=== PATIENT | female | born 1955 | race Caucasian/White ===

== ENCOUNTER 2021-03-11 15:50 | Inpatient (IN) ==
[2021-03-11] MEDS ORDERED: ZOFRAN INJ 4 MG VIAL IVP ONE (15:59)
[2021-03-11] MEDS ORDERED: MORPHINE SULFATE INJ 4 MG IVP ONE (15:59)
--- NOTE | 2021-03-11 16:00 | ED.ABDFE ---
HPI Time Seen Time Seen by Provider: 03/11/21 15:59 HPI Comment HPI Comment: sent over from PCP- had outpt study showing ruptured appy. Complaint Chief Complaint:: being seen by Dr Acosta in ED Reviewed Nurses Notes Review: Yes PMH PMH Past Medical History: Yes ROS Review of Systems Constitutional: See HPI Eyes: No Symptoms Reported ENTM: No Symptoms Reported Respiratoy: No Symptoms Reported Cardiovascular: No Symptoms Reported Gastrointestinal/Abdominal: See HPI and Abdominal Pain Neurological: No Symptoms Reported Musculoskeletal: No Symptoms Reported Integumentary: No Symptoms Reported Endocrine: No Symptoms Reported PE Vital Signs Vitals: Temperature 98.4 F Pulse Rate 99 Respiratory Rate 17 Blood Pressure 191/85 O2 Sat by Pulse Oximetry 100 General General Appearance: Alert and In Distress Head Head Exam: Normal Inspection Eyes Eye exam: Normal Appearance ENT ENT Exam: Normal Exam Neck Neck Exam: Normal Inspection Respiratory Respiratory Exam: Normal Lung Sounds Bilat Cardiovascular Cardiovascular Exam: Regular Rate and Normal Heart Sounds Abdominal Exam Abdominal Exam: Normal Inspection, Normal Bowel Sounds, Tenderness and Guarding; negative Rebound and Dimnished Bowel Sounds Back Back Exam: Normal Inspection Extremeties Extremities Exam: Normal Inspection and Full ROM Skin Skin Exam: Warm, Dry and Intact ROR Labs Reviewed Laboratory Results Reviewed?: Yes Result Diagrams: 03/11/21 16:17 03/11/21 16:17 Laboratory: WBC 21.4 X10^3/uL (3.6-10.0) H 03/11/21 16:17 RBC 4.06 X10^6/uL (3.5-5.4) 03/11/21 16:17 Hgb 13.1 g/dL (12.0-16.0) 03/11/21 16:17 Hct 38.7 % (36.0-47.0) 03/11/21 16:17 MCV 95.3 fL (80.0-100.0) 03/11/21 16:17 MCH 32.2 pg (27.0-34.0) 03/11/21 16:17 MCHC 33.8 g/dL (33.0-35.0) 03/11/21 16:17 RDW 13.4 % (11.6-16.5) 03/11/21 16:17 Plt Count 227 X10^3/uL (150.0-450.0) 03/11/21 16:17 MPV 10.7 fL (7.4-11.0) 03/11/21 16:17 Neut % (Auto) 84.2 % (42.0-75.0) H 03/11/21 16:17 Lymph % (Auto) 7.5 % (21.0-51.0) L 03/11/21 16:17 [place] % (Auto) 8.0 % (0.0-13.0) 03/11/21 16:17 Eos % (Auto) 0.1 % (0.9-2.9) L 03/11/21 16:17 Baso % (Auto) 0.2 % (0.2-1.0) 03/11/21 16:17 Neut # (Auto) 18.0 x10^3/uL (2.2-4.8) H 03/11/21 16:17 Lymph # (Auto) 1.6 X10^3/uL (1.3-2.9) 03/11/21 16:17 [place] # (Auto) 1.7 x10^3/uL (0.3-0.8) H 03/11/21 16:17 Eos # (Auto) 0.0 x10^3/uL (0.0-0.2) 03/11/21 16:17 Baso # (Auto) 0.1 X10^3/uL (0.0-0.1) 03/11/21 16:17 Absolute Nucleated RBC 0.0 /100WBC 03/11/21 16:17 Sodium 132 mmol/L (136-145) L 03/11/21 16:17 Corrected Sodium TNP 03/11/21 16:17 Potassium 3.7 mmol/L (3.5-5.1) 03/11/21 16:17 Chloride 96 mmol/L (98-107) L 03/11/21 16:17 Carbon Dioxide 26.8 mmol/L (21-32) 03/11/21 16:17 BUN 11 mg/dL (7-18) 03/11/21 16:17 Creatinine 0.69 mg/dL (0.55-1.02) 03/11/21 16:17 Est GFR (MDRD) Af Amer > 60 (>60) 03/11/21 16:17 Est GFR (MDRD) Non-Af > 60 (>60) 03/11/21 16:17 Glucose 103 mg/dL (65-99) H 03/11/21 16:17 Calcium 9.0 mg/dL (8.5-10.1) 03/11/21 16:17 Corrected Calcium 9.7 mg/dL (8.5-10.1) 03/11/21 16:17 Total Bilirubin 0.60 mg/dL (0.2-1.0) 03/11/21 16:17 AST 12 Units/L (15-37) L 03/11/21 16:17 ALT 19 Units/L (12-78) 03/11/21 16:17 Alkaline Phosphatase 85 Units/L (46-116) 03/11/21 16:17 Total Protein 7.8 g/dL (6.4-8.2) 03/11/21 16:17 Albumin 3.1 g/dL (3.4-5.0) L 03/11/21 16:17 Globulin 4.7 g/dL (2.5-4.5) H 03/11/21 16:17 Albumin/Globulin Ratio 0.7 Ratio (1.1-2.1) L 03/11/21 16:17 Amylase 25 Units/L (25-115) 03/11/21 16:17 Lipase 74 Units/L (73-393) 03/11/21 16:17 Specimen Type Clean catch urine 03/11/21 16:26 Urine Color Yellow (YELLOW) 03/11/21 16:26 Urine Appearance Hazy (CLEAR) 03/11/21 16:26 Urine pH 5.0 (5.0 - 8.0) 03/11/21 16:26 Ur Specific [place] 1.005 (1.000-1.030) 03/11/21 16:26 Urine Protein 2+ (NEGATIVE) 03/11/21 16:26 Urine Glucose (UA) Negative (NEGATIVE) 03/11/21 16: Urine Ketones 3+ (NEGATIVE) 03/11/21 16:26 Urine Occult Blood 3+ (NEGATIVE) 03/11/21 16:26 Urine Nitrite Negative (NEGATIVE) 03/11/21 16:26 Urine Bilirubin Negative (NEGATIVE) 03/11/21 16:26 Urine Urobilinogen Normal (NORMAL) 03/11/21 16:26 Ur Leukocyte Esterase 1+ (NEGATIVE) 03/11/21 16:26 Urine RBC 3-5 /HPF (0-3) A 03/11/21 16:26 Urine WBC 0-2 /HPF (0-5) 03/11/21 16:26 Ur Squamous Epith Cells Negative /HPF (NEGATIVE) 03/11/21 16:26 Urine Bacteria Negative /HPF (NEGATIVE) 03/11/21 16:26 Urine Mucus Few /HPF (NEGATIVE) 03/11/21 16:26 Ur Culture Indicated? No/not indicated 03/11/21 16:26 Opioid Opioid Risk Tool Total: 0 Total Score Risk Category: Low Risk Copyright: Ramesh PEARCE predicting aberrant behaviors Diagnosis Discharge Problem: Appendicitis Instructions Instructions: Laparoscopic Appendectomy, Adult, Care After, [id number]
[2021-03-11 16:12] VITALS: BMI 28.5
[2021-03-11] MEDS ORDERED: MORPHINE SULFATE INJ 4 MG ONE (16:15)
[2021-03-11] MEDS ORDERED: ZOFRAN INJ 4 MG VIAL ONE ×2 (16:16→17:24)
[2021-03-11] MEDS ORDERED: FLAGYL IV PREMIX 500 MG BAG 500 MG/100 ML BAG IV ONE (16:17)
[2021-03-11] MEDS ORDERED: NS 1000 ML 1,000 ML ONE (16:22)
[2021-03-11] MEDS ORDERED: ZOSYN VIAL 3.375 GRAMS IV ONE (16:22)
[2021-03-11] MEDS ORDERED: NS 100 ML IV + SPIKE MINIBAG* 100 ML IV ONE (16:22)
[2021-03-11 16:36] LABS: BILIRUBIN,URINE NEGATIVE (NEGATIVE); BLOOD/HEMOGLOBIN,URINE 3+ (NEGATIVE); GLUCOSE, URINE NEGATIVE (NEGATIVE); KETONES,URINE 3+ (NEGATIVE); LEUKOCYTE ESTERASE ,URINE 1+ (NEGATIVE); NITRITES,URINE NEGATIVE (NEGATIVE); PROTEIN,URINE 2+ (NEGATIVE); UROBILINOGEN,URINE NORMAL (NORMAL)
[2021-03-11] MEDS: ZOSYN VIAL 3.375 GRAMS 3.375 G in NS 100 ML IV + SPIKE MINIBAG* 100 ML IV SCH ×2 (16:36→21:26)
[2021-03-11 16:38] LABS: APPEARANCE,URINE HAZY (CLEAR); COLOR,URINE YELLOW (YELLOW)
[2021-03-11 16:41] LABS: BASOPHILS # (AUTO) 0.1 X10^3/uL (0.0-0.1); BASOPHILS % (AUTO) 0.2 % (0.2-1.0); EOSINOPHILS % (AUTO) 0.1 % (0.9-2.9); HEMATOCRIT 38.7 % (36.0-47.0); HEMOGLOBIN 13.1 g/dL (12.0-16.0); LYMPHOCYTES # (AUTO) 1.6 X10^3/uL (1.3-2.9); LYMPHOCYTES % (AUTO) 7.5 % (21.0-51.0); MEAN CORPUSCULAR HEMOGLOBIN 32.2 pg (27.0-34.0); MEAN CORPUSCULAR HGB CONC 33.8 g/dL (33.0-35.0); MEAN CORPUSCULAR VOLUME 95.3 fL (80.0-100.0); MEAN PLATELET VOLUME 10.7 fL (7.4-11.0); MONOCYTES # (AUTO) 1.7 x10^3/uL (0.3-0.8); NEUTROPHILS % (AUTO) 84.2 % (42.0-75.0); PLATELET COUNT 227 X10^3/uL (150.0-450.0); RED BLOOD COUNT 4.06 X10^6/uL (3.5-5.4); RED CELL DISTRIBUTION WIDTH 13.4 % (11.6-16.5); WHITE BLOOD COUNT 21.4 X10^3/uL (3.6-10.0)
[2021-03-11 16:42] LABS: ALANINE AMINOTRANSFERASE 19 Units/L (12-78); ALBUMIN 3.1 g/dL (3.4-5.0); ALKALINE PHOSPHATASE 85 Units/L (46-116); AMYLASE 25 Units/L (25-115); ASPARTATE AMINO TRANSFERASE 12 Units/L (15-37); BLOOD UREA NITROGEN 11 mg/dL (7-18); CARBON DIOXIDE 26.8 mmol/L (21-32); CHLORIDE 96 mmol/L (98-107); COR CA(FOR HYPOALB) 9.7 mg/dL (8.5-10.1); CREATININE 0.69 mg/dL (0.55-1.02); LIPASE 74 Units/L (73-393); SODIUM 132 mmol/L (136-145); TOTAL PROTEIN 7.8 g/dL (6.4-8.2); eGFR NON BLACK RACES > 60 (>60)
[2021-03-11 16:43] LABS: BACTERIA,URINE NEGATIVE /HPF (NEGATIVE); MUCUS,URINE FEW /HPF (NEGATIVE); SQUAMOUS EPITHELIAL CELL,UR NEGATIVE /HPF (NEGATIVE)
--- NOTE | 2021-03-11 16:44 | RAD ---
HISTORYPRE-OP RUTURES APPENDIX NOTEDSTUDYCHEST, 1 VIEWCOMPARISONNoneFINDINGSThe trachea is midline. The cardiac silhouette is unremarkable . The lungs are clear without focal infiltrate or effusion. The bony thorax is unremarkable.IMPRESSIONNo acute cardiopulmonary disease.Electronically signed by: RASHAD STONE (Mar 11, 2021 16:42:12)
[2021-03-11 16:53] LABS: ANISOCYTOSIS SLIGHT; BAND NEUTROPHILS % 2 % (0-10); PLATELET MORPHOLOGY COMMENT NORMAL (NORMAL); TOXIC GRANULATION 1+
[2021-03-11] MEDS ORDERED: NS 1000 ML 1,000 ML IV SCH (17:00)
[2021-03-11] MEDS ORDERED: DECADRON INJ ONE (17:07)
[2021-03-11] MEDS ORDERED: FENTANYL INJ 100 mcg ONE (17:08)
[2021-03-11] MEDS ORDERED: DILAUDID INJ ONE (17:08)
[2021-03-11] MEDS ORDERED: BRIDION ONE (17:08)
[2021-03-11] MEDS ORDERED: PEPCID 20 MG IV PREMIX* 20 MG/50 ML BAG IV ONE (17:09)
[2021-03-11] MEDS ORDERED: ZEMURON 50 MG VIAL ONE ×2 (17:09→17:24)
[2021-03-11] MEDS ORDERED: OFIRMEV IV 1000 MG VIAL 1,000 MG/100 ML VIAL IV ONE (17:09)
[2021-03-11] MEDS ORDERED: VERSED ONE (17:24)
[2021-03-11] MEDS ORDERED: TORADOL 30 MG VIAL ONE (17:24)
[2021-03-11] MEDS ORDERED: NEO-SYNEPHRINE INJ ONE (17:24)
[2021-03-11] MEDS ORDERED: DIPRIVAN VIAL ONE (17:24)
[2021-03-11] MEDS ORDERED: XYLOCAINE 2 % (PLAIN) ONE (17:24)
[2021-03-11] MEDS ORDERED: REGLAN INJ 10 MG VIAL ONE (17:24)
[2021-03-11] MEDS ORDERED: ULTANE GAS IN ONE (17:24)
[2021-03-11] MEDS ORDERED: ROBINUL ONE (17:24)
[2021-03-11] MEDS ORDERED: KETALAR ONE (17:24)
[2021-03-11] MEDS ORDERED: DILAUDID INJ IVP PRN ×2 (18:32→19:06)
[2021-03-11] MEDS ORDERED: ZOFRAN INJ 4 MG VIAL IVP PRN ×2 (18:32→19:06)
[2021-03-11] MEDS ORDERED: BACTROBAN TOPICAL OINT ONE (18:33)
[2021-03-11] MEDS: FLAGYL IV PREMIX 500 MG BAG 500 MG/100 ML BAG IV SCH (19:00)
[2021-03-11] MEDS ORDERED: BENADRYL INJ 50 MG VIAL IVP PRN (19:06)
[2021-03-11] MEDS ORDERED: PHENERGAN INJ 25 MG IM PRN (19:06)
[2021-03-11] MEDS ORDERED: REGLAN INJ 10 MG VIAL IVP PRN (19:06)
[2021-03-11] MEDS: D5 1/2 NS 1000 ML 1,000 ML IV SCH (20:26)
[2021-03-12] MEDS: FLAGYL IV PREMIX 500 MG BAG 500 MG/100 ML BAG IV SCH ×4 (03:15→20:26)
[2021-03-12] MEDS: D5 1/2 NS 1000 ML 1,000 ML IV SCH ×3 (04:46→20:36)
[2021-03-12] MEDS: ZOSYN VIAL 3.375 GRAMS 3.375 G in NS 100 ML IV + SPIKE MINIBAG* 100 ML IV SCH ×3 (05:31→21:19)
--- NOTE | 2021-03-12 08:49 | DR.H&P ---
H&P - History & Physical for Day of: H&P Date: 03/11/21 - Chief Complaint Chief Complaint: ABDOMINAL PAIN, RUPTURED APPENDIX - History of Present Illness History of Present Illness: IS A 65 YEAR OLD PATIENT OF OURS WHO PRESENTED TO THE ER WITH COMPLAINTS OF MODERATE RIGHT LOWER QUADRANT ABDOMINAL PAIN. SHE WAS SEEN IN THE OFFICE EARLIER IN THE DAY. WE ORDERED A STAT ABDOMEN/PELVIS CT WITH CONTRAST WHICH REVEALED: Findings are consistent with acute perforated appendicitis with the appendix not fully delineated. There is a small fluid collection adjacent to the appendix as well as inflammation/phlegmon that may represent an infected fluid collection, however, no well-formed abscess currently identified. HER PMH INCLUDES: HTN, ANEMIA, , AND TUBAL LIGATION. ON ARRIVAL TO THE ER, SHE DESCRIBED PAIN SHARP, INTERMITTENT, AND WAS RATED A 8/10. REBOUND TENDERNESS WAS NOTED ON EXAM. SHE ADMITTED TO NAUSEA WITH OCCASIONAL VOMITING, BUT DENIED FEVER. HER VITALS ON ARRIVAL WERE 98.4-99-20-100%-191/85. LABS WERE OBTAINED. ABNORMAL LAB VALUES INCLUDE THE FOLLOWING: WBC 21.4, SODIUM 132, CHLORIDE 96, GLUCOSE 103, AST 12, ALBUMIN 3.1, GLOBULIN 4.7. A URINALYSIS WAS OBTAINED AND REVEALED: WBC 0-2, RBC 3-5, BACTERIA NEGATIVE, LEUKOCYTES 1+, OCCULT BLOOD 3+, KETONES 3+, PROTEIN 2+. COVID-19 NEGATIVE. A CHEST XRAY WAS OBTAINED AND REVEALED: NO ACUTE CARDIOPULMONARY DISEASE. EKG REVEALED: SINUS RHYTHM WITH HR 85. WAS CONSULTED. HE PLANNED TO TAKE PATIENT TO THE OR FOR DIAGNOSTIC LAPAROSCOPY, POSSIBLE OPE APPENDECTOMY. WE ARE IN AGREEMENT WITH PLANS. PATIENT IS MEDICALLY STABLE AND CLEAR FOR SURGERY. SHE WAS STARTED ON D51/2NS AT 125 ML/HR, DILUADID 1MG IV Q4H PRN PAIN, FLAGYL 500MG IV Q8H, ZOSYN 3.375G IV TID, ZOFRAN 4MG IV Q8H PRN, PROTONIX 40MG IV DAILY. OTHERWISE, WE WILL CONTINUE TO MONITOR PATIENT AFTER SURGERY AND MAKE CHANGES APPROPRIATE. TIME SPENT ON CLINICAL ASSESSMENT, REVIEWING LABS AND IMAGING, DECISION MAKING, AND DOCUMENTATION GREATER THAN 75 MINUTES. - Past Medical History Past Medical History: Anemia, Hypertension - Past Surgical History Surgical History: Additional Surgical History: TUBAL - Family History Family Medical History: Heart Failure, Hypertension - Social History Does patient currently use any type of tobacco product: Yes Have you used tobacco products in the last 12 months: Yes Type of Tobacco Use: Cigarettes Does any household member use tobacco: No Alcohol Use: None Drug Use: None - Medications Home Medications: No Known Drug Allergies Allergy (Verified 03/11/21 16:23) CONTINUE taking the following medications cetirizine [Zyrtec] 10 mg PO ONCE PRN 03/11/21 [History] nifedipine 30 mg PO DAILY 03/11/21 [History] - Review of Systems Constitutional: Weakness Eyes: No Symptoms Reported ENT: No Symptoms Reported Respiratory: No Symptoms Reported Cardiovascular: No Symptoms Reported Gastrointestinal: See HPI, Nausea, Vomiting, Abdominal Pain. denies: Diarrhea Genitourinary: No Symptoms Reported Musculoskeletal: No Symptoms Reported Skin: No Symptoms Reported Neurological: Weakness - Physical Exam Vital Signs: Temperature 97.8 F Pulse Rate [Left Brachial] 57 Pulse Rate 90 Respiratory Rate 26 Blood Pressure [Left Arm] 162/67 Blood Pressure 144/61 O2 Sat by Pulse Oximetry 95 Oriented: Normal Eyes: Normal Ear: Normal Nose: Normal Throat: Normal Respiratory: Diminished Throughout Cardiovascular: Normal : Normal Auscultation: Bowel Sounds: Normal Palpation: Normal Tenderness: RLQ, Moderate, Rebound. negative: Guarding, Rigidity Skin: Normal Musculoskeletal: Normal Psychiatric: Normal Mood Description: Calm Affect: Normal Speech Pattern: Clear - Assessment/Plan (1) Appendicitis Qualifiers: Appendicitis type: acute appendicitis Acute appendicitis type: with localized peritonitis Appendicitis gangrene presence: unspecified whether gangrene present Appendicitis perforation presence: with perforation Status: Acute Plan: ADMIT, SURGICAL CONSULT, D51/2NS AT 125 ML/HR, DILUADID 1MG IV Q4H PRN PAIN, FLAGYL 500MG IV Q8H, ZOSYN 3.375G IV TID, ZOFRAN 4MG IV Q8H PRN, PROTONIX 40MG IV DAILY. - Allergies Allergies/Adverse Reactions: Allergies Allergy/AdvReac Type Severity Reaction Status Date / Time No Known Drug Allergies Allergy Verified 03/11/21 16:23
[2021-03-12 09:02] LABS: BASOPHILS % (AUTO) 0 % (0.2-1.0); HEMOGLOBIN 11.8 g/dL (12.0-16.0); LYMPHOCYTES # (AUTO) 0.6 X10^3/uL (1.3-2.9); LYMPHOCYTES % (AUTO) 3.2 % (21.0-51.0); MEAN CORPUSCULAR HEMOGLOBIN 32.1 pg (27.0-34.0); MEAN CORPUSCULAR HGB CONC 33.8 g/dL (33.0-35.0); MEAN CORPUSCULAR VOLUME 94.8 fL (80.0-100.0); MEAN PLATELET VOLUME 10.7 fL (7.4-11.0); MONOCYTES # (AUTO) 0.8 x10^3/uL (0.3-0.8); MONOCYTES % (AUTO) 4.6 % (0.0-13.0); NEUTROPHILS # (AUTO) 16.9 x10^3/uL (2.2-4.8); NEUTROPHILS % (AUTO) 92.2 % (42.0-75.0); PLATELET COUNT 217 X10^3/uL (150.0-450.0); RED BLOOD COUNT 3.69 X10^6/uL (3.5-5.4); WHITE BLOOD COUNT 18.4 X10^3/uL (3.6-10.0)
[2021-03-12] MEDS: PROTONIX INJ 40 MG VIAL IVP SCH (09:12)
[2021-03-12] MEDS: LOVENOX INJ 40 MG SYR SC SCH (09:12)
[2021-03-12 09:19] LABS: BAND NEUTROPHILS % 7 % (0-10)
[2021-03-12 09:20] LABS: ALANINE AMINOTRANSFERASE 17 Units/L (12-78); ALBUMIN 2.5 g/dL (3.4-5.0); ALKALINE PHOSPHATASE 75 Units/L (46-116); ASPARTATE AMINO TRANSFERASE 11 Units/L (15-37); BLOOD UREA NITROGEN 7 mg/dL (7-18); CALCIUM 8.5 mg/dL (8.5-10.1); CARBON DIOXIDE 26.5 mmol/L (21-32); COR CA(FOR HYPOALB) 9.7 mg/dL (8.5-10.1); CREATININE 0.53 mg/dL (0.55-1.02); PLATELET MORPHOLOGY COMMENT NORMAL (NORMAL); TOTAL PROTEIN 6.6 g/dL (6.4-8.2); eGFR NON BLACK RACES > 60 (>60)
--- NOTE | 2021-03-12 09:41 | DR.PROGNOT ---
Hospital Progress Notes - Progress Note for Day of: Progress Note Date: 03/12/21 - Chief Complaint Chief Complaint: feeling better today ,less pain . s/p lap appendectomy for ruptured appendicitis with abscess RLQ . to d/c catheter and ambulate . - Past Medical Family Social History Past Med/Fam/Surg Hx: No changes since H&P Allergies: Allergies No Known Drug Allergies Allergy (Verified 03/11/21 16:23) - Review Of Systems ROS: No change since H&P - Vital Signs Vital Signs: Temperature 97.8 F Pulse Rate [Left Brachial] 57 Pulse Rate 90 Respiratory Rate 26 Blood Pressure [Left Arm] 162/67 Blood Pressure 144/61 O2 Sat by Pulse Oximetry 95 - Physical Exam Oriented: Normal Eyes: Normal Ear: Normal Nose: Normal Throat: Normal Cardiovascular: Normal : Normal GI:Auscultation: Normal GI:Palpation: Normal GI: Tenderness: Diffuse (soft, flat abdomen with moderate diffuse tenderness .. BS+). negative: Guarding, Rigidity Skin: Normal Musculoskeletal: Normal Psychiatric: Normal Mood Description: Calm Affect: Normal Speech Pattern: Clear - Laboratory and Diagnostics Result Diagrams: 03/12/21 08:33 03/11/21 16:17 Labs: Laboratory WBC 18.4 X10^3/uL (3.6-10.0) H 03/12/21 08:33 RBC 3.69 X10^6/uL (3.5-5.4) 03/12/21 08:33 Hgb 11.8 g/dL (12.0-16.0) L 03/12/21 08:33 Hct 35.0 % (36.0-47.0) L 03/12/21 08:33 MCV 94.8 fL (80.0-100.0) 03/12/21 08:33 MCH 32.1 pg (27.0-34.0) 03/12/21 08:33 MCHC 33.8 g/dL (33.0-35.0) 03/12/21 08:33 RDW 13.0 % (11.6-16.5) 03/12/21 08:33 Plt Count 217 X10^3/uL (150.0-450.0) 03/12/21 08:33 Plt Count Comment Adequate (ADEQUATE) 03/12/21 08:33 MPV 10.7 fL (7.4-11.0) 03/12/21 08:33 Neut % (Auto) 92.2 % (42.0-75.0) H 03/12/21 08:33 Lymph % (Auto) 3.2 % (21.0-51.0) L 03/12/21 08:33 [place] % (Auto) 4.6 % (0.0-13.0) 03/12/21 08:33 Eos % (Auto) 0.0 % (0.9-2.9) L 03/12/21 08:33 Baso % (Auto) 0 % (0.2-1.0) L 03/12/21 08:33 Neut # (Auto) 16.9 x10^3/uL (2.2-4.8) H 03/12/21 08:33 Lymph # (Auto) 0.6 X10^3/uL (1.3-2.9) L 03/12/21 08:33 [place] # (Auto) 0.8 x10^3/uL (0.3-0.8) 03/12/21 08:33 Eos # (Auto) 0.0 x10^3/uL (0.0-0.2) 03/12/21 08:33 Baso # (Auto) 0.0 X10^3/uL (0.0-0.1) 03/12/21 08:33 Absolute Nucleated RBC 0.0 /100WBC 03/12/21 08:33 Total Counted 100 03/12/21 08:33 Neutrophils % (Manual) 87 % (39-76) H 03/12/21 08:33 Band Neutrophils % 7 % (0-10) 03/12/21 08:33 Lymphocytes % (Manual) 3 % (13-43) L 03/12/21 08:33 Monocytes % (Manual) 3 % (4-9) L 03/12/21 08:33 Toxic Granulation 1+ A 03/11/21 16:17 Plt Morphology Comment Normal (NORMAL) 03/12/21 08:33 RBC Morphology Normal (NORMAL) 03/12/21 08:33 Anisocytosis Slight A 03/11/21 16:17 Sodium 132 mmol/L (136-145) L 03/11/21 16:17 Corrected Sodium TNP 03/11/21 16:17 Potassium 3.7 mmol/L (3.5-5.1) 03/11/21 16:17 Chloride 96 mmol/L (98-107) L 03/11/21 16:17 Carbon Dioxide 26.8 mmol/L (21-32) 03/11/21 16:17 BUN 11 mg/dL (7-18) 03/11/21 16:17 Creatinine 0.69 mg/dL (0.55-1.02) 03/11/21 16:17 Est GFR (MDRD) Af Amer > 60 (>60) 03/11/21 16:17 Est GFR (MDRD) Non-Af > 60 (>60) 03/11/21 16:17 Glucose 103 mg/dL (65-99) H 03/11/21 16:17 Calcium 9.0 mg/dL (8.5-10.1) 03/11/21 16:17 Corrected Calcium 9.7 mg/dL (8.5-10.1) 03/11/21 16:17 Total Bilirubin 0.60 mg/dL (0.2-1.0) 03/11/21 16:17 AST 12 Units/L (15-37) L 03/11/21 16:17 ALT 19 Units/L (12-78) 03/11/21 16:17 Alkaline Phosphatase 85 Units/L (46-116) 03/11/21 16:17 Total Protein 7.8 g/dL (6.4-8.2) 03/11/21 16:17 Albumin 3.1 g/dL (3.4-5.0) L 03/11/21 16:17 Globulin 4.7 g/dL (2.5-4.5) H 03/11/21 16:17 Albumin/Globulin Ratio 0.7 Ratio (1.1-2.1) L 03/11/21 16:17 Amylase 25 Units/L (25-115) 03/11/21 16:17 Lipase 74 Units/L (73-393) 03/11/21 16:17 Specimen Type Clean catch urine 03/11/21 16:26 Urine Color Yellow (YELLOW) 03/11/21 16:26 Urine Appearance Hazy (CLEAR) 03/11/21 16:26 Urine pH 5.0 (5.0 - 8.0) 03/11/21 16:26 Ur Specific [place] 1.005 (1.000-1.030) 03/11/21 16:26 Urine Protein 2+ (NEGATIVE) 03/11/21 16:26 Urine Glucose (UA) Negative (NEGATIVE) 03/11/21 16:26 Urine Ketones 3+ (NEGATIVE) 03/11/21 16:26 Urine Occult Blood 3+ (NEGATIVE) 03/11/21 16:26 Urine Nitrite Negative (NEGATIVE) 03/11/21 16:26 Urine Bilirubin Negative (NEGATIVE) 03/11/21 16:26 Urine Urobilinogen Normal (NORMAL) 03/11/21 16:26 Ur Leukocyte Esterase 1+ (NEGATIVE) 03/11/21 16: Urine RBC 3-5 /HPF (0-3) A 03/11/21 16:26 Urine WBC 0-2 /HPF (0-5) 03/11/21 16:26 Ur Squamous Epith Cells Negative /HPF (NEGATIVE) 03/11/21 16:26 Urine Bacteria Negative /HPF (NEGATIVE) 03/11/21 16:26 Urine Mucus Few /HPF (NEGATIVE) 03/11/21 16:26 Ur Culture Indicated? No/not indicated 03/11/21 16:26 SARS CoV-2 RNA Rapid DONITA Negative (NEGATIVE) 03/11/21 16:22 Tissue Pathology To follow 03/11/21 18:20 - Assessment and Plan 1: ruptured appendicitis with abscess formation and localized peritonitis . s/p ramesh appendectomy .. same IV ATB .DVT prophylaxis. OOB . on full liquid . - Problem Patient Problems: Patient Problems Appendicitis (Acute) K37
[2021-03-12 09:44] LABS: CHLORIDE 102 mmol/L (98-107); COR NA(FOR HYPERGLY) 137 mmol/L (136-145); SODIUM 136 mmol/L (136-145)
--- NOTE | 2021-03-12 12:09 | PCM.PROG ---
Progress Note - Progress Note for Day of Date of Exam: 03/12/21 - Subjective Subjective: IS DAY 1 STATUS POST DIAGNOSTIC LAPAROSCOPY, APPENDECTOMY, AND DRAINAGE OF RIGHT LOWER QUADRANT. THERE WAS ABSCESS FORMATION AND LOCALIZED PERITONITIS. A ABBY-SOLORZANO DRAIN WAS LEFT IN PLACE. TODAY, SHE IS ALERT AND ORIENTED, LYING IN BED ON MORNING ROUNDS. SHE REPORTS FEELING B CHERI TODAY AND IS HAVING LESS PAIN. ON EXAMINATION, HEART IS REGULAR IN RATE AND RHYTHM. BILATERAL LUNGS ARE NOTED WITH DIMINISHED LUNG SOUNDS THROUGHOUT. ABDOMEN IS ROUND, SOFT, AND NOTED WITH MODERATE DIFFUSE TENDERNESS. THERE ARE MULTIPLE SURGICAL DRESSINGS NOTED WELL A LORNA DRAIN TO THE RLQ. BOWEL SOUNDS NOTED IN ALL QUADRANTS. ANDERSON CATHETER IS NOTED TO BEDSIDE DRAINAGE. HER VITALS THIS MORNING ARE: 97.8-57-26-95%-162/67. LABS WERE OBTAINED. ABNORMAL LAB VALUES INCLUDE THE FOLLOWING: WBC 18.4, HGB 11.8, HCT 35.0, CREATININE 0.53, GLUCOSE 139, AST 11, ALBUMIN 2.5. SHE IS CURRENTLY RECEIVING D51/2NS AT 125 ML/HR, DILUADID 1MG IV Q4H PRN PAIN, FLAGYL 500MG IV Q8H, ZOSYN 3.375G IV TID, ZOFRAN 4MG IV Q8H PRN, PROTONIX 40MG IV DAILY. WE WILL CONTINUE WITH CURRENT PLAN OF CARE TODAY. WILL CONTINUE TO FOLLOW HER. HE IS ADVANCING HER TO A FULL LIQUID DIET TODAY AND PLANS TO REMOVE THE ANDERSON CATHETER. WE ARE IN AGREEMENT WITH PLANS. OTHERWISE, WE PLAN TO FOLLOW UP WITH AM LABS AND CONTINUE TO MONITOR. TIME SPENT ON CLINICAL ASSESSMENT, REVIEWING LABS AND IMAGING, DECISION MAKING, AND DOCUMENTATION GREATER THAN 45 MINUTES. - Past Medical Family Social History Past Med/Fam/Surg Hx: No changes since H&P Allergies: Allergies No Known Drug Allergies Allergy (Verified 03/11/21 16:23) - Review of Systems ROS: No change since H&P - Vital Signs and I&O's Vital Signs: Temperature 97.7 F Pulse Rate [Left Brachial] 74 Pulse Rate 90 Respiratory Rate 28 Blood Pressure [Left Arm] 129/62 Blood Pressure 144/61 O2 Sat by Pulse Oximetry 95 Intake and Output: Intake & Output 03/10/21 03/11/21 03/12/21 03/13/21 11:59 11:59 11:59 11:59 Intake Total 1021 / 1021 Output Total 1560 / 1560 Balance -539 / -539 - Physical Exam Oriented: Normal Eyes: Normal Ear: Normal Nose: Normal Throat: Normal Respiratory: Generalized, Diminished Cardiovascular: Normal : Normal Auscultation: Bowel Sounds: Normal Palpation: Normal Tenderness: Diffuse (soft, flat abdomen with moderate diffuse tenderness .. BS+). negative: Guarding, Rigidity Skin: Normal Musculoskeletal: Normal Psychiatric: Normal Mood Description: Calm Affect: Normal Speech Pattern: Clear - Laboratory and Diagnostics Result Diagrams: 03/12/21 08:33 03/12/21 08:33 Labs: Laboratory WBC 18.4 X10^3/uL (3.6-10.0) H 03/12/21 08:33 RBC 3.69 X10^6/uL (3.5-5.4) 03/12/21 08:33 Hgb 11.8 g/dL (12.0-16.0) L 03/12/21 08:33 Hct 35.0 % (36.0-47.0) L 03/12/21 08:33 MCV 94.8 fL (80.0-100.0) 03/12/21 08:33 MCH 32.1 pg (27.0-34.0) 03/12/21 08:33 MCHC 33.8 g/dL (33.0-35.0) 03/12/21 08:33 RDW 13.0 % (11.6-16.5) 03/12/21 08:33 Plt Count 217 X10^3/uL (150.0-450.0) 03/12/21 08:33 Plt Count Comment Adequate (ADEQUATE) 03/12/21 08:33 MPV 10.7 fL (7.4-11.0) 03/12/21 08:33 Neut % (Auto) 92.2 % (42.0-75.0) H 03/12/21 08:33 Lymph % (Auto) 3.2 % (21.0-51.0) L 03/12/21 08:33 [place] % (Auto) 4.6 % (0.0-13.0) 03/12/21 08:33 Eos % (Auto) 0.0 % (0.9-2.9) L 03/12/21 08:33 Baso % (Auto) 0 % (0.2-1.0) L 03/12/21 08:33 Neut # (Auto) 16.9 x10^3/uL (2.2-4.8) H 03/12/21 08:33 Lymph # (Auto) 0.6 X10^3/uL (1.3-2.9) L 03/12/21 08:33 [place] # (Auto) 0.8 x10^3/uL (0.3-0.8) 03/12/21 08:33 Eos # (Auto) 0.0 x10^3/uL (0.0-0.2) 03/12/21 08:33 Baso # (Auto) 0.0 X10^3/uL (0.0-0.1) 03/12/21 08:33 Absolute Nucleated RBC 0.0 /100WBC 03/12/21 08:33 Total Counted 100 03/12/21 08:33 Neutrophils % (Manual) 87 % (39-76) H 03/12/21 08:33 Band Neutrophils % 7 % (0-10) 03/12/21 08:33 Lymphocytes % (Manual) 3 % (13-43) L 03/12/21 08:33 Monocytes % (Manual) 3 % (4-9) L 03/12/21 08:33 Toxic Granulation 1+ A 03/11/21 16:17 Plt Morphology Comment Normal (NORMAL) 03/12/21 08:33 RBC Morphology Normal (NORMAL) 03/12/21 08:33 Anisocytosis Slight A 03/11/21 16:17 Sodium 136 mmol/L (136-145) 03/12/21 08:33 Corrected Sodium 137 mmol/L (136-145) 03/12/21 08:33 Potassium 3.7 mmol/L (3.5-5.1) 03/12/21 08:33 Chloride 102 mmol/L (98-107) 03/12/21 08:33 Carbon Dioxide 26.5 mmol/L (21-32) 03/12/21 08:33 BUN 7 mg/dL (7-18) 03/12/21 08:33 Creatinine 0.53 mg/dL (0.55-1.02) L 03/12/21 08:33 Est GFR (MDRD) Af Amer > 60 (>60) 03/12/21 08:33 Est GFR (MDRD) Non-Af > 60 (>60) 03/12/21 08:33 Glucose 139 mg/dL (65-99) H 03/12/21 08:33 Calcium 8.5 mg/dL (8.5-10.1) 03/12/21 08:33 Corrected Calcium 9.7 mg/dL (8.5-10.1) 03/12/21 08:33 Total Bilirubin 0.50 mg/dL (0.2-1.0) 03/12/21 08:33 AST 11 Units/L (15-37) L 03/12/21 08:33 ALT 17 Units/L (12-78) 03/12/21 08:33 Alkaline Phosphatase 75 Units/L (46-116) 03/12/21 08:33 Total Protein 6.6 g/dL (6.4-8.2) 03/12/21 08:33 Albumin 2.5 g/dL (3.4-5.0) L 03/12/21 08:33 Globulin 4.1 g/dL (2.5-4.5) 03/12/21 08:33 Albumin/Globulin Ratio 0.6 Ratio (1.1-2.1) L 03/12/21 08:33 Amylase 25 Units/L (25-115) 03/11/21 16:17 Lipase 74 Units/L (73-393) 03/11/21 16:17 Specimen Type Clean catch urine 03/11/21 16:26 Urine Color Yellow (YELLOW) 03/11/21 16:26 Urine Appearance Hazy (CLEAR) 03/11/21 16:26 Urine pH 5.0 (5.0 - 8.0) 03/11/21 16:26 Ur Specific [place] 1.005 (1.000-1.030) 03/11/21 16:26 Urine Protein 2+ (NEGATIVE) 03/11/21 16:26 Urine Glucose (UA) Negative (NEGATIVE) 03/11/21 16:26 Urine Ketones 3+ (NEGATIVE) 03/11/21 16:26 Urine Occult Blood 3+ (NEGATIVE) 03/11/21 16:26 Urine Nitrite Negative (NEGATIVE) 03/11/21 16:26 Urine Bilirubin Negative (NEGATIVE) 03/11/21 16:26 Urine Urobilinogen Normal (NORMAL) 03/11/21 16:26 Ur Leukocyte Esterase 1+ (NEGATIVE) 03/11/21 16:26 Urine RBC 3-5 /HPF (0-3) A 03/11/21 16:26 Urine WBC 0-2 /HPF (0-5) 03/11/21 16:26 Ur Squamous Epith Cells Negative /HPF (NEGATIVE) 03/11/21 16:26 Urine Bacteria Negative /HPF (NEGATIVE) 03/11/21 16:26 Urine Mucus Few /HPF (NEGATIVE) 03/11/21 16:26 Ur Culture Indicated? No/not indicated 03/11/21 16:26 SARS CoV-2 RNA Rapid DONITA Negative (NEGATIVE) 03/11/21 16:22 Tissue Pathology To follow 03/11/21 18:20 - Plan (1) Appendicitis Status: Acute Qualifiers: Appendicitis type: acute appendicitis Acute appendicitis type: with localized peritonitis Appendicitis gangrene presence: unspecified whether gangrene present Appendicitis perforation presence: with perforation Plan: D51/2NS AT 125 ML/HR, DILUADID 1MG IV Q4H PRN PAIN, FLAGYL 500MG IV Q8H, ZOSYN 3.375G IV TID, ZOFRAN 4MG IV Q8H PRN, PROTONIX 40MG IV DAILY. FULL LIQUID DIET
[2021-03-12] MEDS ORDERED: RESTORIL CAP 15 MG PO PRN (19:33)
[2021-03-13] MEDS: FLAGYL IV PREMIX 500 MG BAG 500 MG/100 ML BAG IV SCH ×2 (02:33→10:28)
[2021-03-13] MEDS: D5 1/2 NS 1000 ML 1,000 ML IV SCH ×2 (03:37→13:20)
[2021-03-13] MEDS: ZOSYN VIAL 3.375 GRAMS 3.375 G in NS 100 ML IV + SPIKE MINIBAG* 100 ML IV SCH (05:03)
[2021-03-13] MEDS: LOVENOX INJ 40 MG SYR SC SCH (08:26)
[2021-03-13] MEDS: PROTONIX INJ 40 MG VIAL IVP SCH (08:27)
[2021-03-13 08:48] LABS: BASOPHILS % (AUTO) 0.2 % (0.2-1.0); EOSINOPHILS % (AUTO) 0.3 % (0.9-2.9); HEMOGLOBIN 12.1 g/dL (12.0-16.0); LYMPHOCYTES # (AUTO) 2.3 X10^3/uL (1.3-2.9); LYMPHOCYTES % (AUTO) 15.4 % (21.0-51.0); MEAN CORPUSCULAR HEMOGLOBIN 31.9 pg (27.0-34.0); MEAN CORPUSCULAR HGB CONC 33.6 g/dL (33.0-35.0); MEAN CORPUSCULAR VOLUME 94.8 fL (80.0-100.0); MEAN PLATELET VOLUME 10.2 fL (7.4-11.0); MONOCYTES # (AUTO) 1.1 x10^3/uL (0.3-0.8); MONOCYTES % (AUTO) 7.3 % (0.0-13.0); NEUTROPHILS # (AUTO) 11.4 x10^3/uL (2.2-4.8); NEUTROPHILS % (AUTO) 76.8 % (42.0-75.0); PLATELET COUNT 244 X10^3/uL (150.0-450.0); WHITE BLOOD COUNT 14.9 X10^3/uL (3.6-10.0)
[2021-03-13 09:10] LABS: ALANINE AMINOTRANSFERASE 19 Units/L (12-78); ALBUMIN 2.4 g/dL (3.4-5.0); ALKALINE PHOSPHATASE 67 Units/L (46-116); ASPARTATE AMINO TRANSFERASE 14 Units/L (15-37); BLOOD UREA NITROGEN 9 mg/dL (7-18); CALCIUM 8.6 mg/dL (8.5-10.1); CARBON DIOXIDE 29.1 mmol/L (21-32); CHLORIDE 104 mmol/L (98-107); COR CA(FOR HYPOALB) 9.9 mg/dL (8.5-10.1); COR NA(FOR HYPERGLY) 142 mmol/L (136-145); CREATININE 0.72 mg/dL (0.55-1.02); SODIUM 141 mmol/L (136-145); TOTAL PROTEIN 6.4 g/dL (6.4-8.2); eGFR NON BLACK RACES > 60 (>60)
[2021-03-13] MEDS ORDERED: ZyrTEC TAB 10 MG PO PRN (09:26)
[2021-03-13] MEDS ORDERED: PROCARDIA XL PO SCH (10:00)
--- NOTE | 2021-03-13 10:20 | DR.PROGNOT ---
Hospital Progress Notes - Progress Note for Day of: Progress Note Date: 03/13/21 - Chief Complaint Chief Complaint: had several BM . tolerating diet well . still having moderate abdominal pain . s/p lap appendectomy for ruptured appendicitis with abscess RLQ . WBC 14.9.. BUn, lytes all normal. LORNA was removed and all dressings were changed . afebrile . - Past Medical Family Social History Past Med/Fam/Surg Hx: No changes since H&P Allergies: Allergies No Known Drug Allergies Allergy (Verified 03/11/21 16:23) - Review Of Systems ROS: No change since H&P - Vital Signs Vital Signs: Temperature 97.9 F Pulse Rate [Right Brachial] 68 Pulse Rate [Left Brachial] 64 Pulse Rate 100 Respiratory Rate 17 Blood Pressure [Right Arm] 197/77 Blood Pressure [Left Arm] 166/72 Blood Pressure 144/61 O2 Sat by Pulse Oximetry 97 - Physical Exam Oriented: Normal Eyes: Normal Ear: Normal Nose: Normal Throat: Normal Respiratory: Generalized, Diminished Cardiovascular: Normal : Normal GI:Auscultation: Normal GI:Palpation: Normal GI: Tenderness: Diffuse (soft, flat abdomen with moderate diffuse tenderness .. BS+). negative: Guarding, Rigidity Skin: Normal Musculoskeletal: Normal Psychiatric: Normal Mood Description: Calm Affect: Normal Speech Pattern: Clear, Appropriate - Laboratory and Diagnostics Result Diagrams: 03/13/21 08:38 03/13/21 08:38 Labs: Laboratory WBC 14.9 X10^3/uL (3.6-10.0) H 03/13/21 08:38 RBC 3.80 X10^6/uL (3.5-5.4) 03/13/21 08:38 Hgb 12.1 g/dL (12.0-16.0) 03/13/21 08:38 Hct 36.0 % (36.0-47.0) 03/13/21 08:38 MCV 94.8 fL (80.0-100.0) 03/13/21 08:38 MCH 31.9 pg (27.0-34.0) 03/13/21 08:38 MCHC 33.6 g/dL (33.0-35.0) 03/13/21 08:38 RDW 13.0 % (11.6-16.5) 03/13/21 08:38 Plt Count 244 X10^3/uL (150.0-450.0) 03/13/21 08:38 Plt Count Comment Adequate (ADEQUATE) 03/12/21 08:33 MPV 10.2 fL (7.4-11.0) 03/13/21 08:38 Neut % (Auto) 76.8 % (42.0-75.0) H 03/13/21 08:38 Lymph % (Auto) 15.4 % (21.0-51.0) L 03/13/21 08:38 [place] % (Auto) 7.3 % (0.0-13.0) 03/13/21 08:38 Eos % (Auto) 0.3 % (0.9-2.9) L 03/13/21 08:38 Baso % (Auto) 0.2 % (0.2-1.0) 03/13/21 08:38 Neut # (Auto) 11.4 x10^3/uL (2.2-4.8) H 03/13/21 08:38 Lymph # (Auto) 2.3 X10^3/uL (1.3-2.9) 03/13/21 08:38 [place] # (Auto) 1.1 x10^3/uL (0.3-0.8) H 03/13/21 08:38 Eos # (Auto) 0.0 x10^3/uL (0.0-0.2) 03/13/21 08:38 Baso # (Auto) 0.0 X10^3/uL (0.0-0.1) 03/13/21 08:38 Absolute Nucleated RBC 0.2 /100WBC 03/13/21 08:38 Total Counted 100 03/12/21 08:33 Neutrophils % (Manual) 87 % (39-76) H 03/12/21 08:33 Band Neutrophils % 7 % (0-10) 03/12/21 08:33 Lymphocytes % (Manual) 3 % (13-43) L 03/12/21 08:33 Monocytes % (Manual) 3 % (4-9) L 03/12/21 08:33 Toxic Granulation 1+ A 03/11/21 16:17 Plt Morphology Comment Normal (NORMAL) 03/12/21 08:33 RBC Morphology Normal (NORMAL) 03/12/21 08:33 Anisocytosis Slight A 03/11/21 16:17 Sodium 141 mmol/L (136-145) 03/13/21 08:38 Corrected Sodium 142 mmol/L (136-145) 03/13/21 08:38 Potassium 3.6 mmol/L (3.5-5.1) 03/13/21 08:38 Chloride 104 mmol/L (98-107) 03/13/21 08:38 Carbon Dioxide 29.1 mmol/L (21-32) 03/13/21 08:38 BUN 9 mg/dL (7-18) 03/13/21 08:38 Creatinine 0.72 mg/dL (0.55-1.02) 03/13/21 08:38 Est GFR (MDRD) Af Amer > 60 (>60) 03/13/21 08:38 Est GFR (MDRD) Non-Af > 60 (>60) 03/13/21 08:38 Glucose 137 mg/dL (65-99) H 03/13/21 08:38 Calcium 8.6 mg/dL (8.5-10.1) 03/13/21 08:38 Corrected Calcium 9.9 mg/dL (8.5-10.1) 03/13/21 08:38 Total Bilirubin 0.40 mg/dL (0.2-1.0) 03/13/21 08:38 AST 14 Units/L (15-37) L 03/13/21 08:38 ALT 19 Units/L (12-78) 03/13/21 08:38 Alkaline Phosphatase 67 Units/L (46-116) 03/13/21 08:38 Total Protein 6.4 g/dL (6.4-8.2) 03/13/21 08:38 Albumin 2.4 g/dL (3.4-5.0) L 03/13/21 08:38 Globulin 4.0 g/dL (2.5-4.5) 03/13/21 08:38 Albumin/Globulin Ratio 0.6 Ratio (1.1-2.1) L 03/13/21 08:38 Amylase 25 Units/L (25-115) 03/11/21 16:17 Lipase 74 Units/L (73-393) 03/11/21 16:17 Specimen Type Clean catch urine 03/11/21 16:26 Urine Color Yellow (YELLOW) 03/11/21 16: Urine Appearance Hazy (CLEAR) 03/11/21 16:26 Urine pH 5.0 (5.0 - 8.0) 03/11/21 16:26 Ur Specific [place] 1.005 (1.000-1.030) 03/11/21 16:26 Urine Protein 2+ (NEGATIVE) 03/11/21 16:26 Urine Glucose (UA) Negative (NEGATIVE) 03/11/21 16: Urine Ketones 3+ (NEGATIVE) 03/11/21 16:26 Urine Occult Blood 3+ (NEGATIVE) 03/11/21 16: Urine Nitrite Negative (NEGATIVE) 03/11/21 16: Urine Bilirubin Negative (NEGATIVE) 03/11/21 16: Urine Urobilinogen Normal (NORMAL) 03/11/21 16:26 Ur Leukocyte Esterase 1+ (NEGATIVE) 03/11/21 16: Urine RBC 3-5 /HPF (0-3) A 03/11/21 16:26 Urine WBC 0-2 /HPF (0-5) 03/11/21 16:26 Ur Squamous Epith Cells Negative /HPF (NEGATIVE) 03/11/21 16:26 Urine Bacteria Negative /HPF (NEGATIVE) 03/11/21 16:26 Urine Mucus Few /HPF (NEGATIVE) 03/11/21 16:26 Ur Culture Indicated? No/not indicated 03/11/21 16:26 SARS CoV-2 RNA Rapid DONITA Negative (NEGATIVE) 03/11/21 16:22 Tissue Pathology To follow 03/11/21 18:20 - Assessment and Plan 1: ruptured appendicitis with abscess formation and localized peritonitis . s/p lap appendectomy .. to advance diet . Pt could be d/c on oral Cipro and Flagyl and percocet 5 . to follow in 10 days - Problem Patient Problems: Patient Problems Appendicitis (Acute) K37
[2021-03-13 12:09] VITALS: BP 179/75
[2021-03-13 13:25] LABS: CRYPTOSPORIDIUM PARVUM ANTIGEN NEGATIVE (NEGATIVE); GIARDIA LAMBLIA ANTIGEN NEGATIVE (NEGATIVE)
== END 2021-03-13 14:30 | disposition home or self-care (01) | DRG 373 ==
LOC: ER 15:50 → MED/SURG 17:02
PROVIDERS: ADMIT Internal Medicine; ATTEND Internal Medicine
PROC: APPYLAP (ICD-10-PCS; 2021-03-11 16:45)
DX: R11.2 Nausea with vomiting, unspecified; Z20.822 Contact with and (suspected) exposure to COVID-19; D72.828 Other elevated white blood cell count; I10 Essential (primary) hypertension; R10.30 Lower abdominal pain, unspecified; K35.33 Acute appendicitis with perforation, localized peritonitis, and gangrene, with abscess; R63.0 Anorexia